=== PATIENT | female | born 1985 | race American Indian/Alaskan Native ===

== ENCOUNTER 2021-01-17 15:58 | Emergency (ER) | payer OTHER ==
[2021-01-17 17:20] VITALS: BP 137/88
[2021-01-17] MEDS ORDERED: ACETAMINOPHEN 325 MG TAB PO ONE (19:02)
[2021-01-17] MEDS ORDERED: predniSONE 20 MG TAB PO ONE (19:02)
[2021-01-17] MEDS ORDERED: LORazepam 1 MG TAB PO ONE (19:02)
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
== END 2021-01-17 22:30 | disposition home or self-care (01) ==
LOC: ED 15:58
DX: S09.90XA Unspecified injury of head, initial encounter (principal); T14.8XXA Other injury of unspecified body region, initial encounter; F41.0 Panic disorder [episodic paroxysmal anxiety]; R51.9 Headache, unspecified; Z79.899 Other long term (current) drug therapy; Z98.890 Other specified postprocedural states; Z88.6 Allergy status to analgesic agent; V49.49XA Driver injured in collision with other motor vehicles in traffic accident, initial encounter; Y92.410 Unspecified street and highway as the place of occurrence of the external cause; Y93.89 Activity, other specified; Y99.8 Other external cause status
CPT/HCPCS: 99283; J7512